=== PATIENT | female | born 1935 | race Caucasian/White ===

== ENCOUNTER 2016-12-20 12:42 | Emergency (ER) | payer OTHER ==
[~2016-12-20] VITALS: Ht 154.9 cm; Wt 79.4 kg
[~2016-12-20 12:42] MED LIST: Aldactone PO; Ascorbic Acid,Ester- PO; Colace PO; Coreg PO; Dulcolax PO; ENABLEX15 MG PO; Ecotrin PO; Feosol PO; K-Dur PO; LASIX40 MG PO; LIPITOR40 MG PO; MITRAZOL POWDER30 GM TP; Oyst-Cal D, Oscal W/ PO; PACERONE200 M1 PO; PROzac PO; PriLOSEC PO; RESTORIL15 MG PO; SENOKOT S,PE1 TABLET PO; THERAGRAN1 TABLET PO; Tylenol Regular Stre PO; Xanax PO; Zestril,Prinivil PO; oxyCODONE PO
[2016-12-20 13:40] LABS: HEMATOCRIT 37.3 % (36.0-46.0); MCH 32.1 PG (29.0-34.0); MCHC 32.4 G/DL (30.0-36.0); MCV 98.9 FL (83-99); MEAN PLAT.VOLUME 9.7 uM^3 (9.5-12.4); PLATELET COUNT 225 K/uL (156-360); RBC DIS.WIDTH-CV 11.2 % (11.8-14.6); RBC DIS.WIDTH-SD 40.5 % (39-53); RED BLOOD COUNT 3.77 M/uL (3.80-5.20); WHITE BLOOD COUNT 6.2 K/uL (4.1-10.2)
[2016-12-20 13:44] LABS: CHLORIDE 101 mEq/L (99-109); POTASSIUM 4.4 mEq/L (3.7-5.4); SODIUM 134 mEq/L (136-147)
[2016-12-20 13:46] LABS: GLUCOSE 142 mg/dL (70-99)
[2016-12-20 13:47] LABS: ANION GAP 9 MEQ/L (2-14)
[2016-12-20 13:49] LABS: GFR ESTIMATE (CALCULATED) > 59 mL/min/
[2016-12-20 13:50] LABS: UREA NITROGEN (BUN) 8 mg/dL (9-23)
[2016-12-20 17:27] VITALS: BP 198/126
== END 2016-12-20 17:28 | disposition home or self-care (01) ==
LOC: EME 12:42
DX: J06.9 Acute upper respiratory infection, unspecified (principal); I10 Essential (primary) hypertension; Z87.891 Personal history of nicotine dependence; I25.2 Old myocardial infarction; K21.9 Gastro-esophageal reflux disease without esophagitis
CPT/HCPCS: 71020; 80048; 85027; 99281; 99284